=== PATIENT | female | born 1990 | race African-American/Black ===

== ENCOUNTER 2019-05-22 19:23 | Emergency (ER) | payer SELFPAY ==
[~2019-05-22] VITALS: Ht 167.6 cm; Wt 69.0 kg
[2019-05-22 19:39] VITALS: BP 103/67
[2019-05-22 20:48] LABS: CLARITY URINE CLEAR (CLEAR); COLOR URINE YELLOW (YELLOW); KETONES URINE TRACE (NEGATIVE); LEUKOCYTE ESTERASE URINE 2+ (NEGATIVE); NITRITE URINE NEGATIVE (NEGATIVE); OCCULT BLOOD URINE NEGATIVE (NEGATIVE); PROTEIN URINE TRACE (NEGATIVE)
== END 2019-05-23 00:25 | disposition left against medical advice (07) ==
LOC: ER 19:23
DX: Z53.21 Procedure and treatment not carried out due to patient leaving prior to being seen by health care provider (principal); R42 Dizziness and giddiness; R11.10 Vomiting, unspecified; R10.9 Unspecified abdominal pain
CPT/HCPCS: 81003; 81025

== ENCOUNTER 2019-08-24 17:49 | Inpatient (IN) | payer MEDICAID ==
[~2019-08-24] VITALS: Ht 167.6 cm; Wt 65.8 kg
[2019-08-24] MEDS ORDERED: LORAZEPAM 1MG TABLET PO ONE (19:00)
[2019-08-24 19:04] LABS: BASOPHILS % 0.4 % (0.0-2.0); CHLORIDE 112 mEq/L (98-107); EOSINOPHILS % 0.9 % (0.0-5.0); HEMATOCRIT. 38.9 % (36.0-48.0); HEMOGLOBIN. 13.1 g/dL (12.0-16.0); LYMPHOCYTES % 30.3 % (20.0-50.0); MEAN CORPUSCULAR VOLUME 91.7 fL (81.0-99.0); MEAN PLATELET VOLUME 10.3 fl (7.4-10.4); MONOCYTES % 8.8 % (2.0-8.0); NEUTROPHILS % 59.6 % (40.0-76.0); PLATELET 175 x1000/uL (130-400); RED BLOOD CELL COUNT 4.24 mill/uL (4.2-5.4)
[2019-08-24 19:09] LABS: ETHANOL BLOOD < 10 mg/dL
[2019-08-24 19:34] LABS: CLARITY URINE CLEAR (CLEAR); COLOR URINE YELLOW (YELLOW); KETONES URINE NEGATIVE (NEGATIVE); LEUKOCYTE ESTERASE URINE 1+ (NEGATIVE); NITRITE URINE NEGATIVE (NEGATIVE); OCCULT BLOOD URINE NEGATIVE (NEGATIVE); PROTEIN URINE NEGATIVE (NEGATIVE); SPECIFIC GRAVITY URINE 1.027 (1.005-1.030)
[2019-08-24 20:03] LABS: *AMPHETAMINES SCREEN URINE NEGATIVE (NEGATIVE); *BENZODIAZEPINES SCREEN URINE NEGATIVE (NEGATIVE)
[2019-08-24 20:04] LABS: *COCAINE SCREEN URINE NEGATIVE (NEGATIVE); METHADONE URINE SCREEN NEGATIVE (NEGATIVE); OPIATES URINE SCREEN NEGATIVE (NEGATIVE); PHENCYCLIDINE URINE SCREEN NEGATIVE (NEGATIVE)
[2019-08-24 20:13] LABS: *BARBITURATES SCREEN URINE PRESUMTIVE POSITIVE (NEGATIVE); CANNABINOID URINE SCREEN PRESUMTIVE POSITIVE (NEGATIVE)
[2019-08-24 23:30] VITALS: BP 103/43
[2019-08-25] VITALS: BP 103/43
[2019-08-25] MEDS ORDERED: LORAZEPAM 2MG/ML CPJ IV PRN (01:15)
[2019-08-25] MEDS ORDERED: GABA-531 MT (03:50)
[2019-08-25 04:00] VITALS: BP 93/44
[2019-08-25 08:00] VITALS: BP 100/46
[2019-08-25] MEDS ORDERED: DIAZEPAM 2 MG TABLET PO SCH (09:00)
[2019-08-25] MEDS ORDERED: GABAPENTIN 300MG CAPSULE PO SCH (09:00)
[2019-08-25] MEDS ORDERED: ENOXAPARIN 40MG/0.4ML SYR SUBCUT SCH (09:00)
[2019-08-25 15:50] VITALS: BP 95/38
[2019-08-25 17:53] VITALS: BP 95/38
== END 2019-08-25 19:45 | disposition home or self-care (01) | DRG 53 ==
LOC: ER 17:49 → 5WST 21:01 → ENRESERV 21:39
PROVIDERS: ADMIT Internal Medicine; ATTEND Internal Medicine
DX: R56.9 Unspecified convulsions (principal); E44.1 Mild protein-calorie malnutrition; E87.8 Other disorders of electrolyte and fluid balance, not elsewhere classified; F11.10 Opioid abuse, uncomplicated; F13.239 Sedative, hypnotic or anxiolytic dependence with withdrawal, unspecified; F15.90 Other stimulant use, unspecified, uncomplicated; F32.9 Major depressive disorder, single episode, unspecified; T42.75XA Adverse effect of unspecified antiepileptic and sedative-hypnotic drugs, initial encounter; Z83.3 Family history of diabetes mellitus; Y92.89 Other specified places as the place of occurrence of the external cause
CPT/HCPCS: 36415; 80053; 80305; 80307; 80320; 80329; 81003; 84443; 85025; 93005; 99285; J1650; G0480